=== PATIENT | female | born 1985 | race Caucasian/White ===

== ENCOUNTER 2018-10-31 12:18 | Outpatient (CLI) | payer OTHER ==
[~2018-10-31] VITALS: Ht 172.7 cm; Wt 113.0 kg
== END 2018-10-31 14:13 | disposition home or self-care (01) ==
LOC: LDOP 12:18
PROVIDERS: ATTEND Obstetrics & Gynecology
DX: O36.8130 Decreased fetal movements, third trimester, not applicable or unspecified (principal); Z3A.36 36 weeks gestation of pregnancy
CPT/HCPCS: 59025; 76819; 99201; 99211; G0463